=== PATIENT | female | born 1975 | race Caucasian/White ===

== ENCOUNTER 2019-10-11 16:35 | Emergency (ER) | payer OTHER, SELFPAY ==
--- NOTE | ~2019-10-11 | CT_ITS ---
EXAMINATION: CT abdomen pelvis wo con EXAM DATE: 10/11/2019 18:23 INDICATION: Concerned about leakage from ventricular peritoneal shunt. Bilateral parietal headache fo r 3 days. TECHNIQUE: Spiral CT of the abdomen and pelvis was performed without contrast. Axial, coronal and s agittal images were reviewed. The dose-length product (DLP) for this examination was 1625.16 mGy-cm. The exposure was tailored according to patient size (auto mA exposure control), and iterative recon struction (ASIR) was used as additional dose reduction technique. Comparison is made to prior examina tion from 03/09/2012. FINDINGS: Distal aspect of the ventriculoperitoneal shunt is identified extending along right anterio r aspect of chest, entering the abdomen anterior to the left liver lobe and with tip likely within pe ritoneal cavity anterior to the omentum. No catheter fracture for the imaged portion. No fluid identi fied surrounding the shunt. The liver, spleen, adrenal glands and pancreas are unremarkable. There a re cholecystectomy clips. There is no nephrolithiasis or hydronephrosis. The uterus is unremarkabl e. The bladder is unremarkable. There is no retroperitoneal or pelvic lymphadenopathy. The appendix is normal. The stomach and small bowel are unremarkable. There is expected amount of c olonic stool. No free intraperitoneal gas. The heart is normal in size. There are no pericardial or pleural effusions. The lung bases are unremarkable. There are no osteoblastic or osteolytic les ions identified. IMPRESSION: 1. No acute intra-abdominal findings. 2. Imaged portion of DESIGN INSERTER shunt intact. Reviewed, dictated and finalized at location A.
--- NOTE | ~2019-10-11 | CT_ITS ---
EXAMINATION: CT brain wo con EXAM DATE: 10/11/2019 18:23 INDICATION: Bilateral parietal headache for 3 days. TECHNIQUE: Spiral CT of the head was performed without contrast. Axial, coronal and sagittal images were reviewed. The dose-length product (DLP) for this examination was 605.33 mGy-cm. The exposure w as tailored according to patient size, and iterative reconstruction (ASIR) was used as additional dos e reduction technique. Comparison is made to prior examination from 06/24/2019. FINDINGS: Interval insertion of right lateral ventricle there is a right parietal shunt. The right la teral ventricle is completely collapsed. Narrowed left lateral ventricle. There is no acute intrapare nchymal hemorrhage. No evidence of intraparenchymal brain mass lesion. No evidence of acute infarct ion. There is no mass effect or midline shift. There are no extra-axial collections. There are no acute calvarial fractures. The orbits are unremarkable. Soft tissue is unremarkable. There is right mastoid effusion. IMPRESSION: 1. Right parietal shunt with tip inside completely collapsed right lateral ventricle. Over shunting? 2. No acute intracranial findings. Reviewed, dictated and finalized at location A. IMPRESSION: 1. Right parietal shunt with tip inside completely collapsed right lateral cristian tricle. Over shunting? 2. No acute intracranial findings.
[2019-10-11 17:48] VITALS: BP 157/97; PULSE 100; RESP 18; TEMP 36.4; O2SAT 99
--- NOTE | 2019-10-11 18:00 | ED.HA ---
HPI - Headache General Chief Complaint: Headache Stated Complaint: Head pain Time Seen by Provider: 10/11/19 17:30 Source: patient Mode of arrival: ambulatory Limitations: no limitations History of Present Illness HPI Narrative: Barry is a 44-year-old female patient. She presents ambulatory to the emergency room with her sister. Her main complaint is headache. This is a global headache. 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 Initially it was 9 or 10. It is a throbbing type of headache. Brary has history of for pseudotumor cerebri. This was diagnosed in March [address] Feliciano at [facility] in [place]. She has history of idiopathic intracranial hypertension also. Barry had an LP shunt done on June 16, 2019 at [facility] by the neurosurgeon Dr. Bee. She had a revision of the shunt on July 02, 2019. On August 13 2019, the LP shunt was removed and a SHACKLER shunt was placed by Dr. Bee. Dr. Bee has since left [facility]. She now sees Dr.Leslie Kennedy. She has not seen him yet but is going to make an appointment to see him soon. the last time she saw was in May 2019. She states that when the LP shunt failed, she had developed a lot of subcutaneous swelling from collection of the CSF under the skin. She is worried whether something similar is happening with the SHACKLER shunt also or not. I do not feel any subcutaneous swelling along the tract of the SHACKLER shunt. However she is concerned and we will get a CT scan to see whether it shows anything or not. We will also get a CT scan of the head. She has had no vomiting. She has some photophobia. No fever. No cough. No abdominal pain. she says that this is not the worst headache of her life. However will still get a CT scan of the head because of her SHACKLER shunt Commons pseudo cerebri tumors and IIH. MD elicited complaint: headache Onset (ago): day(s) ( Three days) Onset description: gradually Location: other ( pressure-like pain) Severity: moderate Pain scale (0-10): 7 Quality & Timing: aching, throbbing, constant and other ( Not the worst headache of her life.) Exacerbating factors: none Relieving factors: NSAIDs Context: occurred at rest Associated symptoms: other ( Please see details in HPI narrative.) Treatments prior to arrival: ibuprofen Related Data Home Medications Medication Instructions Recorded Confirmed bupropion HCl 300 mg PO BID 10/11/19 10/11/19 cyclobenzaprine 20 mg PO HS 10/11/19 10/11/19 diphenhydramine HCl [Benadryl] 25 mg PO HS 10/11/19 10/11/19 furosemide 40 mg PO DAILY 10/11/19 10/11/19 lisinopril 30 mg PO DAILY 10/11/19 10/11/19 paroxetine HCl 60 mg PO HS 10/11/19 10/11/19 ranitidine HCl 150 mg PO DAILY 10/11/19 10/11/19 ziprasidone HCl [Geodon] 40 mg PO BID 10/11/19 10/11/19 Allergies Allergy/AdvReac Type Severity Reaction Status Date / Time Penicillins Allergy Hives Verified 06/24/19 19:07 Sulfa (Sulfonamide Allergy Hives Verified 06/24/19 19:07 Antibiotics) Review of Systems Review of Systems: All systems reviewed & are unremarkable except as noted in HPI and below Constitutional: Constitutional: Reports as per HPI, Reports no additional constitutional complaints, Denies chills, Denies fever(s) and Denies weakness Eyes: Eyes: Reports as per HPI, Reports no additional eye complaints and Reports photophobia ENT: Reports system reviewed and no additional complaints, except as documented, Denies dysphagia, Denies vertigo, Denies dizziness, Denies nasal congestion and Denies sore throat Cardiovascular: Cardiovascular: Reports as per HPI, Reports no additional cardiovascular complaints, Denies chest pain and Denies radiating jaw, neck or arm pain Respiratory: Respiratory: Reports as per HPI, Reports no additional respiratory complaints, Denies cough and Denies dyspnea Gastrointestinal: Gastrointestinal: Reports as per HPI, Reports no add
--- NOTE | 2019-10-11 19:12 | PC.NURSE ---
Call placed to [facility] to reach pts neurologist.
--- NOTE | 2019-10-11 19:38 | PC.NURSE ---
Dr. Schulte speaking with Dr. Hampton, neurologist at [facility] about pt care. pt to call off tomorrow to schedule f/u appointment.
[2019-10-11] MEDS: KETOROLAC (*BKC) 60 MG/2 ML VIAL IM (20:06)
[2019-10-11] MEDS: ONDANSETRON HCL ODT 4 MG TABLET PO (20:06)
--- NOTE | 2019-10-11 20:10 | PC.NURSE ---
Pt to desk requesting to be prescribed oxycodone for pain because she just recently moved. Pt made aware that we do not prescribe narcotic pain medications for chronic pain.
[2019-10-11 20:39] VITALS: BP 167/91; PULSE 100; RESP 18; O2SAT 95
== END 2019-10-11 20:49 | disposition home or self-care (01) ==
PROVIDERS: Emergency Provider Surgery; PCP Family Medicine
DX: G93.2 Benign intracranial hypertension (principal)
CPT/HCPCS: 70450; 74176; 96372; 99284; A9270; J1885

== ENCOUNTER 2019-10-19 20:30 | Emergency (ER) | payer OTHER, SELFPAY ==
--- NOTE | ~2019-10-19 | CT_ITS ---
EXAMINATION: CT brain wo con INDICATION: Dizziness and biparietal headaches, recent TECHNICAL SUPPORT ASSISTANT shunt insertion COMPARISON: 10/11/2019 TECHNIQUE: Standard unenhanced head CT. The dose-length product (DLP) was 605.33 mGy-cm. The mA was a djusted according to patient size. Iterative reconstruction technique was employed. FINDINGS: A ventriculoperitoneal shunt enters the right parietal bone and ends with its tip in the ri ght lateral ventricle. There is no intracranial hemorrhage, acute infarction, or abnormal mass lesion . The ventricles are normal. There is no abnormal mass effect or midline shift. The billingsley-white matter differentiation is normal. The basal cisterns are patent. The orbits are normal. There is mild mucos al thickening of the paranasal sinuses. There is complete opacification of the right mastoid air cell s. IMPRESSION: 1. No acute intracranial abnormality or significant interval change. 2. Right mastoid effusion. Reviewed, dictated and finalized at location A.
[2019-10-19 20:35] VITALS: BP 135/77; PULSE 103; RESP 14; TEMP 36.7; O2SAT 99
--- NOTE | 2019-10-19 21:08 | ED.HA ---
HPI - Headache General Chief Complaint: Headache Stated Complaint: amb Time Seen by Provider: 10/19/19 21:08 Source: patient Mode of arrival: ambulatory Limitations: no limitations History of Present Illness HPI Narrative: 44-year-old woman comes in today complaining of headache most likely chronic her head which has been present for a month and a half. She had a shunt placed Aug 13, 2019 and began having headaches approximately Sep 04. She states that she has also been having intermittent vomiting, the last episode was earlier today. She has had no cough or cold symptoms, fever, diarrhea, weakness or numbness. Patient states that she feels off balance and that she is falling to the left. She saw Dr. Doe recently who prescribed her some medications. She states that she was not able to tolerate the oxycarbazepine. MD elicited complaint: headache Onset (ago): week(s) Onset description: gradually Location: other ([place]) Severity: severe Pain scale (0-10): 12 Quality & Timing: throbbing Exacerbating factors: none Relieving factors: nothing Associated symptoms: fever, nausea, vomiting and photophobia Treatments prior to arrival: none Related Data Home Medications Medication Instructions Recorded Confirmed bupropion HCl 300 mg PO BID 10/11/19 10/19/19 cyclobenzaprine 20 mg PO HS 10/11/19 10/19/19 diphenhydramine HCl [Benadryl] 25 mg PO HS 10/11/19 10/19/19 furosemide 40 mg PO DAILY 10/11/19 10/19/19 lisinopril 30 mg PO DAILY 10/11/19 10/19/19 paroxetine HCl 60 mg PO HS 10/11/19 10/19/19 ranitidine HCl 150 mg PO DAILY 10/11/19 10/19/19 ziprasidone HCl [Geodon] 40 mg PO BID 10/11/19 10/19/19 Allergies Allergy/AdvReac Type Severity Reaction Status Date / Time Penicillins Allergy Hives Verified 06/24/19 19:07 Sulfa (Sulfonamide Allergy Hives Verified 06/24/19 19:07 Antibiotics) Review of Systems Constitutional: Constitutional: Denies chills, Denies fatigue, Reports fever(s) and Denies weakness Eyes: Eyes: Reports change in vision (blurry) and Reports photophobia ENT: Denies dysphagia, Reports dizziness, Denies nasal congestion and Denies sore throat Cardiovascular: Cardiovascular: Denies chest pain and Denies radiating jaw, neck or arm pain Respiratory: Respiratory: Denies cough, Denies dyspnea and Denies wheezing Gastrointestinal: Gastrointestinal: Denies abdominal pain, Denies diarrhea and Reports vomiting Musculoskeletal: Musculoskeletal: Denies arthralgias and Denies joint swelling Integumentary/Breasts: Skin/Breast: Denies pruritus, Denies erythema and Denies rash Neurologic: Denies vertigo, Denies dizziness and Denies syncope Psychiatric: Psychiatric: Denies anxiety and Denies depression Endocrine: Endocrine: Denies polydipsia and Denies polyuria Hematologic/Lymphatic: Hematologic/Lymphatic: Denies easy bleeding and Denies easy bruising Allergic/Immunologic: Allergic/Immunologic: Denies lip swelling and Denies wheezing PMFSH Past Medical History Medical History Anxiety Depression Idiopathic intracranial hypertension Pseudotumor cerebri Surgical History Surgical History History of cholecystectomy S/P BOX OFFICE ATTENDANT shunt Family History Family History (Updated 10/11/19 @ 18:29 by Rigo Schulte MD) Mother Diabetes mellitus Hypertension Father , father of carbon monoxide poisoning at age 67 No problems noted. Social History Social History Years smoked: 20 Smoking status: Current every day smoker Tobacco type: cigarettes Substance use: never Exam Const: General: healthy appearing, no acute distress and alert Orientation/consciousness: patient oriented x3 Limitations: no limitations HENMT: Ears: TM's normal bilaterally and EAC's normal Mouth: Yes Normal oral and palatal mucosa pre
--- NOTE | 2019-10-19 21:42 | PC.NURSE ---
[address] [facility] CONTACTED PER [employer]. AWAITING CALL BACK FROM NEUROLOGIST.
[2019-10-19] MEDS: KETOROLAC (*BKC) 60 MG/2 ML VIAL IM (22:05)
[2019-10-19 22:32] VITALS: RESP 15; O2SAT 98
== END 2019-10-19 22:36 | disposition home or self-care (01) ==
PROVIDERS: Emergency Provider Emergency Medicine
DX: R51 Headache (principal)
CPT/HCPCS: 70450; 96372; 99283; 99284; J1885